=== PATIENT | female | born 1955 | race Hispanic/Latino ===

== ENCOUNTER 2019-04-02 15:59 | Observation (INO) | payer SELFPAY ==
[2019-04-02 16:26] LABS: Absolute Lymphocytes (CBC) 2.7 K/uL (0.7-4.9); Basophils % 0.5 % (0-1.3); Hematocrit 34.1 % (36.0-45.0); Lymphocytes % 23.9 % (15.3-44.8); MPV 8.5 fL (7.6-11.3); RBC Red Blood Cell Count 4.08 M/uL (3.86-4.86)
[2019-04-02 16:44] LABS: ALT/SGPT 18 U/L (12-78); AST/SGOT 19 U/L (15-37); Albumin 3.8 g/dL (3.4-5.0); Alkaline Phosphatase 84 U/L (45-117); BUN Blood Urea Nitrogen 38 mg/dL (7-18); Bicarbonate 31 mmol/L (21-32); Bilirubin Direct 0.1 mg/dL (0-0.2); Bilirubin Total 0.4 mg/dL (0.2-1.0); Glucose Level 370 mg/dL (74-106); Magnesium 1.8 mg/dL (1.8-2.4); NT PRO-BNP 218 pg/mL (<125); Potassium 3.5 mmol/L (3.5-5.1); Protein, Total 7.6 g/dL (6.4-8.2); Sodium Level 135 mmol/L (136-145); Troponin (Emerg Dept Use Only) < 0.02 ng/mL (0.0-0.045)
[2019-04-02 16:47] LABS: Protime INR 1.04
--- NOTE | 2019-04-02 17:26 | RAD REPORT ---
EXAM DESCRIPTION: Jenny Single View04/02/2019 4:31 pm CLINICAL HISTORY: syncope COMPARISON: 2012 FINDINGS: The lungs appear clear of acute infiltrate. The heart is normal size IMPRESSION: No acute abnormalities displayed
--- NOTE | 2019-04-02 17:48 | RAD REPORT ---
EXAM DESCRIPTION: USCarotid Artery Qamajrzsm43/9/2019 5:17 pm CLINICAL HISTORY: Syncope COMPARISON: 2012 FINDINGS: The velocity of the right internal carotid artery equals 70 cm/sec. The right ICA/CCA rati o .7. Tortuous common carotid arteries. The velocity of the left internal carotid artery equals 110 cm/sec. The left ICA/CCA ratio 1.2 Mild plaque is present within the carotid arteries. The vertebral arteries demonstrate antegrade flow IMPRESSION: Mild plaque within the carotid arteries without evidence of a hemodynamically significan t stenosis NASCET criteria used. Mild 0-49% stenosis Moderate 50-69% stenosis Severe 70-99% stenosis
--- NOTE | 2019-04-02 18:25 | EKG ---
Test Date: 2019-04-02 Test Time: 16:25:36 Firer Low Pressure: HUNG MEASUREMENT RESULTS: Intervals: Rate: 76 MT: 144 QRSD: 76 QT: 406 QTc: 456 Rochelle: P: 37 MT: 144 QRS: 18 T: -5 INTERPRETIVE STATEMENTS: Normal sinus rhythm Nonspecific T wave abnormality Abnormal ECG Compared to ECG 12/01/2012 14:28:35 T-wave abnormality now present Left ventricular hypertrophy no longer present Electronically Signed On 04-02-19 18:24:12 CDT by Humberto Clark
--- NOTE | 2019-04-02 18:40 | RAD REPORT ---
EXAM DESCRIPTION: CT - Head C Spine Mpr Wo Con - 04/02/2019 6:22 pm CLINICAL HISTORY: syncope.Head and neck injury status post fall. Head and neck pain COMPARISON: None. TECHNIQUE: Computed axial tomography of the head and cervical spine was obtained. Sagittal and coronal reconstruction was performed. All CT scans are performed using dose optimization technique as appropriate and may include automated exposure control or mA/KV adjustment according to patient size. FINDINGS: Low-density within the right frontal lobe has the appearance of an old infarction. Mild lo w-density within periventricular white matter likely ischemic changes secondary to small vessel disea se An intracranial bleed is not seen. The ventricles are normal in caliber. An extra-axial fluid collect ion is not noted.Fluid within the visualized sinuses and mastoids is not seen A cervical fracture is not visualized. No dislocation is noted. IMPRESSION: No acute intracranial abnormality is seen. A cervical fracture is not visualized. If the patient continues to have symptoms to suggest intracra nial /spinal cord pathology then MRI would be recommended
[2019-04-02] MEDS ORDERED: ACETAMINOPHEN 500 MG TAB PO PRN (19:16)
[2019-04-02] MEDS ORDERED: ONDANSETRON 4 MG/2 ML VIAL IV PRN (19:16)
[2019-04-02] MEDS ORDERED: MORPHINE 2 MG/ML SYR IV PRN (19:16)
--- NOTE | 2019-04-02 19:46 | ER ---
Nurse's Notes [facility] Name: Jihan Armenta Age: 63 yrs Sex: Female : 1955 Arrival Date: 04/02/2019 Time: 16:02 Bed 20 Private MD: Diagnosis: Syncope and collapse;Fluid overload Presentation: 04/02 16:05 Presenting complaint: Patient states: She was at [employer] eating lunch and she stood up aj1 to change the TV channel and had a syncopal episode. Patient reports that this is her second syncopal episode this week. Denies chest pain, shortness of breath. Patient reports that she has been feeling fine, then she suddenly feels light headed and passes out. Transition of care: patient was not received from another setting of care. Onset of symptoms was April 02, 2019. 16:05 Risk Assessment: Do you want to hurt yourself or someone else? Patient reports no aj1 desire to harm self or others. Initial Sepsis Screen: Does the patient meet any 2 criteria? No. Patient's initial sepsis screen is negative. Does the patient have a suspected source of infection? No. Patient's initial sepsis screen is negative. Care prior to arrival: None. 16:05 Acuity: ELDA 3 aj1 16:22 Method Of Arrival: EMS: [facility] aj1 Triage Assessment: 16:25 General: Appears in no apparent distress. comfortable, Behavior is calm, cooperative, aj1 appropriate for age. Pain: Denies pain. Neuro: Level of Consciousness is awake, alert, obeys commands, Reports a syncopal episode. Historical: - Allergies: 16:25 No Known Allergies; aj1 - Home Meds: 16:25 Metformin Oral [Active]; novolin [Active]; 2 unknown HTN medications [Active]; aj1 - PMHx: 16:25 Hypertension; Diabetes - NIDDM; neuropathy; CVA; aj1 - PSHx: 16:25 Hysterectomy; Tonsillectomy; fatty tumor removed from under right arm; aj1 - Immunization history:: Flu vaccine is not up to date. - Social history:: Smoking status: Patient/guardian denies using tobacco. - Ebola Screening: : Patient denies travel to an Ebola-affected area in the 21 days before illness onset. Screenin:28 Abuse screen: Denies threats or abuse. Denies injuries from another. Nutritional aj1 screening: No deficits noted. Tuberculosis screening: No symptoms or risk factors identified. 20:37 Fall Risk Fall in past 12 months (25 points). Assessment: 16:28 General: Appears in no apparent distress. comfortable, Behavior is calm, cooperative, aj1 appropriate for age. Pain: Denies pain. Neuro: Level of Consciousness is awake, alert, obeys commands, Oriented to person, place, time, situation, Moves all extremities. Full function Speech is normal, Facial symmetry appears normal, Reports a syncopal episode. Cardiovascular: Denies chest pain, palpitations, shortness of breath, Heart tones S1 S2 present Patient's skin is warm and dry. Rhythm is sinus rhythm. Respiratory: Airway is patent Respiratory effort is even, unlabored, Respiratory pattern is regular, symmetrical, Breath sounds are clear bilaterally. Denies shortness of breath. GI: No signs and/or symptoms were reported involving the gastrointestinal system. : No signs and/or symptoms were reported regarding the genitourinary system. EENT: No signs and/or symptoms were reported regarding the EENT system. Derm: No signs and/or symptoms reported regarding the dermatologic system. Skin is pale. Musculoskeletal: No signs and/or symptoms reported regarding the musculoskeletal system. Circulation, motion, and sensation intact. 17:38 Reassessment: Patient appears in no apparent distress at this time. No changes from aj1 previously documented assessment. Patient and/or family updated on plan of care and expected duration. Pain level reassessed. Patient is alert, oriented x 3, equal unlabored respirations, skin warm/dry/pink. 18:10 Reassessment: Patient transported to [place] via wheelchair. aj1 19:30 Reassessment: Patient appears in no apparent distress at this time. No changes from previously documented assessment. Patient and/or family updated on plan of care and expected duration. Pain level reassessed. Patient is alert, oriented x 3, equal unlabored respirations, skin warm/dry/pink. Patient denies pain at this time. 20:29 Reassessment: Patient appears in no apparent distress at this time. No changes from previously documented assessment. Patient and/or family updated on plan of care and expected duration. Pain level reassessed. Patient is alert, oriented x 3, equal unlabored respirations, skin warm/dry/pink. Explained Admission Orders Patient denies pain at this time. Vital Signs: 16:25 BP 149 / 60; Pulse 79; Resp 15; Pulse Ox 95% on R/A; Weight 113.4 kg (R); Height 5 ft. aj1 2 in. (157.48 cm) (R); Pain 0/10; 17:38 BP 137 / 48; Pulse 85; Resp 18; Pulse Ox 96% ; aj1 18:45 BP 128 / 49; Pulse 79; Resp 21; Pulse Ox 95% on R/A; aj1 19:30 BP 135 / 91; Pulse 77; Resp 15; Pulse Ox 93% on R/A; wh 20:36 BP 101 / 63; Pulse 79; Resp 18; Pulse Ox 100% on R/A; wh 16:25 Body Mass Index 45.73 (113.40 kg, 157.48 cm) aj1 ED Course: 16:02 Patient arrived in ED. 16:04 Asuncion Wagner, RN is Primary Nurse. aj1 16:11 [facility]C [facility] snw 16:11 Earnest Stone MD is Attending Physician. snw 16:24 Triage completed. aj1 16:25 Arm band placed on. aj1 16:28 Patient has correct armband on for positive identification. Bed in low position. Call aj1 light in reach. Side rails up X 1. monitor technician on. Pulse ox on. NIBP on. 16:28 No provider procedures requiring assistance completed. Inserted saline lock: 20 gauge aj1 in right antecubital area, using aseptic technique. Blood collected. 16:31 XRAY Chest (1 view) In Process Unspecified. EDMS 17:05 EKG done, by psych tech. reviewed by Ira TRAN. sm3 17:18 Carotid Artery Bilateral US In Process Unspecified. EDMS 18:23 CT Head C Spine In Process Unspecified. EDMS 19:44 Sun Lebron MD is Hospitalizing Provider. snw 21:20 Patient admitted, IV remains in place. Administered Medications: No medications were administered Point of Care Testing: Blood Glucose: 20:36 Blood Glucose: 324 mg/dL; Ranges: Outcome: 19:45 Decision to Hospitalize by Provider. snw 21:19 Admitted to Med/surg accompanied by nurse, family with patient, via wheelchair, room wh 231, with chart, Report called to Dipika MATA 21:19 Condition: good 21:19 Instructed on the need for admit. 21:20 Patient left the ED. Signatures: Dispatcher [employer] EDKarena Bui, RN RN Asuncion Lo RN RN aj1 Ira Arrington, RECREATIONAL THERAPY TECHNICIAN-C RECREATIONAL THERAPY TECHNICIAN-Csnw Carolyn White Shakira 3 Corrections: (The following items were deleted from the chart) 17:05 17:05 EKG done, sm3 sm3
--- NOTE | 2019-04-02 19:46 | EDPHYS ---
Physician Documentation [facility] Name: Jihan Armenta Age: 63 yrs Sex: Female : 1955 Arrival Date: 04/02/2019 Time: 16:02 Bed 20 Private MD: OJSLYN Physician Earnest Stone HPI: 04/02 18:58 This 63 yrs old Female presents to ER via EMS with complaints of Syncope. snw 18:58 The patient has experienced syncope, collapsed. Onset: The symptoms/episode snw began/occurred suddenly, today. Duration: The patient has had multiple episodes, that last 1 minute(s). Context: the episode(s) was witnessed, by family, occurred at home, occurred while the patient was standing, Just prior to the episode the patient experienced no apparent symptoms. Associated signs and symptoms: Pertinent positives: "lightheadedness" not dizziness. Current symptoms: Currently, the patient is not experiencing any symptoms. The patient has experienced a previous episode, last week. The patient has not recently seen a physician, the patient's primary care provider is Dr. Dr. Krishnamurthy. Historical: - Allergies: 16:25 No Known Allergies; aj1 - Home Meds: 16:25 Metformin Oral [Active]; novolin [Active]; 2 unknown HTN medications [Active]; aj1 - PMHx: 16:25 Hypertension; Diabetes - NIDDM; neuropathy; CVA; aj1 - PSHx: 16:25 Hysterectomy; Tonsillectomy; fatty tumor removed from under right arm; aj1 - Immunization history:: Flu vaccine is not up to date. - Social history:: Smoking status: Patient/guardian denies using tobacco. - Ebola Screening: : Patient denies travel to an Ebola-affected area in the 21 days before illness onset. ROS: 18:58 Constitutional: Negative for fever, chills, and weight loss, Eyes: Negative for injury, snw pain, redness, and discharge, ENT: Negative for injury, pain, and discharge, Neck: Negative for injury, pain, and swelling, Cardiovascular: Negative for chest pain, palpitations, and edema, Respiratory: Negative for shortness of breath, cough, wheezing, and pleuritic chest pain, Abdomen/GI: Negative for abdominal pain, nausea, vomiting, diarrhea, and constipation, Back: Negative for injury and pain, : Negative for injury, bleeding, discharge, and swelling, MS/Extremity: Negative for injury and deformity, Skin: Negative for injury, rash, and discoloration, Psych: Negative for depression, anxiety, suicide ideation, homicidal ideation, and hallucinations. 18:58 Neuro: Positive for syncope, x 2 episodes in past week. Exam: 17:15 Constitutional: This is a well developed, well nourished patient who is awake, alert, snw and in no acute distress. Head/Face: Normocephalic, atraumatic. Eyes: Pupils equal round and reactive to light, extra-ocular motions intact. Lids and lashes normal. Conjunctiva and sclera are non-icteric and not injected. Cornea within normal limits. Periorbital areas with no swelling, redness, or edema. ENT: Nares patent. No nasal discharge, no septal abnormalities noted. Tympanic membranes are normal and external auditory canals are clear. Oropharynx with no redness, swelling, or masses, exudates, or evidence of obstruction, uvula midline. Mucous membranes moist. Neck: Trachea midline, no thyromegaly or masses palpated, and no cervical lymphadenopathy. Supple, full range of motion without nuchal rigidity, or vertebral point tenderness. No Meningismus. Chest/axilla: Normal chest wall appearance and motion. Nontender with no deformity. No lesions are appreciated. 17:15 Respiratory: Lungs have equal breath sounds bilaterally, clear to auscultation and percussion. No rales, rhonchi or wheezes noted. No increased work of breathing, no retractions or nasal flaring. Abdomen/GI: Soft, non-tender, with normal bowel sounds. No distension or tympany. No guarding or rebound. No evidence of tenderness throughout. Back: No spinal tenderness. No costovertebral tenderness. Full range of motion. Skin: Warm, dry with normal turgor. Normal color with no rashes, no lesions, and no evidence of cellulitis. MS/ Extremity: Pulses equal, no cyanosis. Neurovascular intact. Full, normal range of motion. Neuro: Awake and alert, GCS 15, oriented to person, place, time, and situation. Cranial nerves II-XII grossly intact. Motor strength 5/5 in all extremities. Sensory grossly intact. Cerebellar exam normal. Normal gait. Psych: Awake, alert, with orientation to person, place and time. Behavior, mood, and affect are within normal limits. 17:15 Cardiovascular: Rate: normal, Rhythm: regular, Edema: 2+ edema to level of left ankle and right ankle. Vital Signs: 16:25 BP 149 / 60; Pulse 79; Resp 15; Pulse Ox 95% on R/A; Weight 113.4 kg (R); Height 5 ft. aj1 2 in. (157.48 cm) (R); Pain 0/10; 17:38 BP 137 / 48; Pulse 85; Resp 18; Pulse Ox 96% ; aj1 18:45 BP 128 / 49; Pulse 79; Resp 21; Pulse Ox 95% on R/A; aj1 19:30 BP 135 / 91; Pulse 77; Resp 15; Pulse Ox 93% on R/A; wh 20:36 BP 101 / 63; Pulse 79; Resp 18; Pulse Ox 100% on R/A; wh 16:25 Body Mass Index 45.73 (113.40 kg, 157.48 cm) aj1 MDM: 16:14 Patient medically screened. snw 19:45 Data reviewed: vital signs, nurses notes. Data interpreted: Pulse oximetry: on room air snw is 95 %. Interpretation: acceptable. Counseling: I had a detailed discussion with the patient and/or guardian regarding: the historical points, exam findings, and any diagnostic results supporting the discharge/admit diagnosis, lab results, radiology results, the need for further work-up and treatment in the hospital. 04/02 16:12 Order name: Basic Metabolic Panel; Complete Time: 16:44 snw 04/02 16:12 Order name: CBC with Diff; Complete Time: 16:43 snw 04/02 16:12 Order name: LFT's; Complete Time: 16:44 snw 04/02 16:12 Order name: Magnesium; Complete Time: 16:44 snw 04/02 16:12 Order name: NT PRO-BNP; Complete Time: 16:44 snw 04/02 16:12 Order name: PT-INR; Complete Time: 16:55 snw 04/02 16:12 Order name: Troponin (emerg Dept Use Only); Complete Time: 16:44 snw 04/02 16:12 Order name: XRAY Chest (1 view); Complete Time: 17:32 snw 04/02 16:12 Order name: EKG; Complete Time: 16:13 snw 04/02 16:29 Order name: Carotid Artery Bilateral US; Complete Time: 17:52 snw 04/02 18:06 Order name: CT Head C Spine; Complete Time: 18:50 snw 04/02 19:21 Order name: Echo with Doppler EDMS 04/02 19:21 Order name: Troponin I EDMS 04/02 19:21 Order name: Urinalysis W/Microscopic EDMS 04/02 16:12 Order name: Cardiac monitoring; Complete Time: 16:31 snw 04/02 16:12 Order name: EKG - Nurse/Tech; Complete Time: 16:32 snw 04/02 16:12 Order name: IV Saline Lock; Complete Time: 16:32 snw 04/02 16:12 Order name: Labs collected and sent; Complete Time: 16:32 snw 04/02 16:12 Order name: O2 Per Protocol; Complete Time: 16:32 snw 04/02 16:12 Order name: O2 Sat Monitoring; Complete Time: 16:32 snw 04/02 16:29 Order name: Misc. Order: med list from ; Complete Time: 17:44 snw 04/02 19:21 Order name: CONS Pharmacy Consult EDMS 04/02 19:21 Order name: Heart Healthy EDMS EC:15 Rate is 76 beats/min. Rhythm is regular. QRS [place] is Normal. [place] interval is normal. QRS snw interval is normal. QT interval is normal. No Q waves. T waves are Flattened. Clinical impression: NSR w/ Non-specific ST/T Changes. Administered Medications: No medications were administered Point of Care Testing: Blood Glucose: 20:36 Blood Glucose: 324 mg/dL; Ranges: Critical Glucose Levels:Adult <50 mg/dl or >400 mg/dl <40 mg/dl or >180 mg/dl Disposition: 04/03 07:52 Co-signature as Attending Physician, Earnest Stone MD I agree with the assessment and jan plan of care. Disposition: 04/02/19 19:45 Hospitalization ordered by Sun Lebron for Observation. Preliminary diagnosis are Syncope and collapse, Fluid overload. - Bed requested for Telemetry/MedSurg (observation). - Status is Observation. wh - Condition is Stable. - Problem is new. - Symptoms are unchanged. UTI on Admission? No Signatures: Dispatcher [employer] Asuncion Solitario RN RN aj1 Maryble Medina, RN Earnest Guzmán MD MD cha Therrien, Shelly, MAIL SORTING SUPERVISOR-C MAIL SORTING SUPERVISOR-[place] Carolyn White Corrections: (The following items were deleted from the chart) 04/02 19:51 19:45 Hospitalization Ordered by Sun Lebron MD for Observation. Preliminary diagnosis is Syncope and collapse; Fluid overload. Bed requested for Telemetry/MedSurg (observation). Status is Observation. Condition is Stable. Problem is new. Symptoms are unchanged. UTI on Admission? No. snw 21:20 19:51 04/02/2019 19:45 Hospitalization Ordered by Sun Lebron MD for Observation. Preliminary diagnosis is Syncope and collapse; Fluid overload. Bed requested for Telemetry/MedSurg (observation). Status is Observation. Condition is Stable. Problem is new. Symptoms are unchanged. UTI on Admission? No.
[2019-04-02 21:37] VITALS: O2SAT 100
[2019-04-02] MEDS: NA CHLORIDE 0.9% 1,000 ML IV SCH (22:28)
[2019-04-02 23:21] VITALS: BMI 44.1
[2019-04-02 23:37] LABS: Urine Appearance CLOUDY; Urine Bilirubin NEGATIVE (NEG); Urine Blood NEGATIVE (NEG); Urine Color YELLOW; Urine Glucose 3+ (NEG); Urine Protein NEGATIVE (NEG); Urine Specific Gravity 1.015 (1.005-1.030); Urine Urobilinogen 0.2 mg/dL (0.2-1.0)
[2019-04-03 00:41] LABS: Urine Bacteria LOADED /HPF (<20); Urine Culture Reflex Order REFLEXED; Urine RBC NONE SEEN /HPF (NONE SEEN)
[2019-04-03 05:48] LABS: Absolute Lymphocytes (CBC) 3.7 K/uL (0.7-4.9); Basophils % 0.5 % (0-1.3); Hematocrit 29.6 % (36.0-45.0); Lymphocytes % 32.6 % (15.3-44.8); MPV 8.4 fL (7.6-11.3); RBC Red Blood Cell Count 3.56 M/uL (3.86-4.86)
[2019-04-03] MEDS: NA CHLORIDE 0.9% 1,000 ML IV SCH ×2 (06:02→16:47)
[2019-04-03 06:17] LABS: Bilirubin Total 0.3 mg/dL (0.2-1.0); Potassium 3.2 mmol/L (3.5-5.1); Protein, Total 6.4 g/dL (6.4-8.2)
[2019-04-03] MEDS ORDERED: POTASSIUM CL SA 10 MEQ TAB PO ONE (07:20)
[2019-04-03] MEDS ORDERED: GLUCAGON 1 MG/VIAL IM PRN (08:59)
[2019-04-03] MEDS ORDERED: D50W 25 GM/50 ML SYRINGE IV PRN (08:59)
[2019-04-03] MEDS: INSULIN -REGULAR HUMAN 50 UNIT/0.5 ML ML SQ SCH ×3 (09:09→16:47)
--- NOTE | 2019-04-03 09:19 | P.HP ---
Certification for Inpatient Patient admitted to: Observation With expected LOS: <2 Midnights Patient will require the following post-hospital care: None Practitioner: I am a practitioner with admitting privileges, knowledge of patient current condition, hospital course, and medical plan of care. Services: Services provided to patient in accordance with Admission requirements found in Title 42 Section 412.3 of the Code of Federal Regulations Patient History Date of Service: 04/02/19 Reason for admission: SYNCOPE History of Present Illness: Patient is a 63-year-old female who I have taken care of in the past for neurologic issues. She has a history of CVA, and she presents to the emergency room after having a syncopal episode. According to her she has been feeling faint since Sunday. She had a near syncopal episode at congregation, and then she had another 1 Sunday morning when they were helping deliver some things to another charge. Then they were praying on their knees Sunday afternoon and Ms. Armenta suddenly became unresponsive. She hit her head on a toy as she was falling. She started waking up right away. She had no incontinence or did not bite her tongue. In the emergency room she was found to have acute renal insufficiency. I did notice she is on hydrochlorothiazide and Lasix together. I am not really sure about the rationale for this, but this may be because she becomes edematous. Will check an echocardiogram and a UA for protein. Also check her liver function and albumin level. She will be admitted for observation. Will get a carotid Doppler as well as an MRI- stroke protocol. She has had a stroke in the past and we will make sure that she is not having a stroke or TIAs. Allergies No Known Allergies Allergy (Verified 04/02/19 22:08) Home Medications: Atorvastatin Calcium [Lipitor*] 10 mg PO DAILY 04/02/19 Furosemide [Lasix] 40 mg PO DAILY 04/02/19 Insulin NPH Human Isophane [Novolin N] 20 units SQ BID 04/02/19 Losartan Potassium 50 mg PO DAILY 04/02/19 Metformin ER [Glucophage ER*] 500 mg PO BID 04/02/19 Metoprolol Tartrate [Lopressor*] 25 mg PO DAILY 04/02/19 hydroCHLOROthiazide [Hydrochlorothiazide*] 12.5 mg PO DAILY 04/02/19 - Past Medical/Surgical History Has patient received pneumonia vaccine in the past: Yes Diabetic: Yes -: DM -: Asthma -: Htn -: Hyperlipidemia -: CHF -: Hysterectomy -: Fat from under right arm - Family History Mother Medical History: Heart disease - Social History Smoking Status: Never smoker Alcohol use: No CD- Drugs: No Caffeine use: Yes Place of Residence: Home Review of Systems 10-point ROS is otherwise unremarkable Physical Examination - Vital Signs Temperature: 97.1 F Blood Pressure: 144/63 Pulse: 63 Respirations: 17 Pulse Ox (%): 96 - Physical Exam General: Alert, In no apparent distress, Oriented x3 HEENT: Atraumatic, PERRLA, Mucous membr. moist/pink, EOMI, Sclerae nonicteric Neck: Supple, 2+ carotid pulse no bruit, No LAD, Without JVD or thyroid abnormality Respiratory: Clear to auscultation bilaterally, Normal air movement Cardiovascular: Regular rate/rhythm, Normal S1 S2, No murmurs Gastrointestinal: Normal bowel sounds, Soft and benign, Non-distended, No tenderness Musculoskeletal: No swelling, No tenderness Integumentary: No rashes Neurological: Normal gait, Normal speech, Normal strength at 5/5 x4 extr, Normal tone, Sensation intact, Cranial nerves 3-12 intact, Normal affect Lymphatics: No axilla or inguinal lymphadenopathy - Studies Laboratory Data (last 24 hrs) 04/02/19 16:16: PT 12.3, INR 1.04 04/02/19 16:16: WBC 11.1 H, Hgb 11.9 L, Hct 34.1 L, Plt Count 388 04/02/19 16:16: Sodium 135 L, Potassium 3.5, BUN 38 H, Creatinine 1.87 H, Glucose 370 H, Magnesium 1.8, Total Bilirubin 0.4, AST 19, ALT 18, Alkaline Phosphatase 84 Assessment & Plan - Problems (Diagnosis) (1) Syncope and collapse Current Visit: Yes Status: Acute (2) History of stroke Current Visit: Yes Status: Acute (3) Acute kidney injury Current Visit: Yes Status: Acute (4) Dehydration Current Visit: Yes Status: Acute (5) Diuretics causing adverse effect in therapeutic use Current Visit: Yes Status: Acute - Plan 1. MRI of the brain 2. Echocardiogram and carotid Doppler 3. Anti-platelet therapy and statin therapy 4. Neurology consultation-this can be done as an outpatient 5. Monitor renal function very closely; gentle hydration; will discontinue 1 of the diuretics at the time of discharge. 6. DVT prophylaxis Discharge Plan: Home Plan to discharge in: 24 Hours - Advance Directives Does patient have a Living Will: No Does patient have a Durable POA for Healthcare: No - Code Status/Comfort Care Code Status Assessed: Yes Code Status: Full Code Critical Care: No Time Spent Managing PTS Care (In Minutes): 45
--- NOTE | 2019-04-03 10:52 | ECHO ---
HEIGHT: 5 ft 2 in WEIGHT: 241 lb 8 oz DATE OF STUDY: 04/03/[address]: Sun Lebron MD 2-DIMENSIONAL: YES M.MODE: YES DOPPLER: YES COLOR FLOW: YES TDS: NO PORTABLE: NO DEFINITY: NO BUBBLE STUDY: NO DIAGNOSIS: SYNCOPE CARDIAC HISTORY: CATHERIZATION: NO SURGERY: NO PROSTHETIC VALVE: NO PACEMAKER: NO MEASUREMENTS (cm) DIASTOLIC (NORMALS) SYSTOLIC (NORMALS) IVSd 1.2 (0.6-1.2) LA Diam 4.0 (1.9-4.0) LVEF 78% LVIDd 4.2 (3.5-5.7) LVIDs 2.3 (2.0-3.5) %FS 46% LVPWd 1.1 (0.6-1.2) Ao Diam 2.6 (2.0-3.7) 2 DIMENSIONAL ASSESSMENT: RIGHT ATRIUM: NORMAL LEFT ATRIUM: NORMAL RIGHT VENTRICLE: NORMAL LEFT VENTRICLE: NORMAL TRICUSPID VALVE: NORMAL MITRAL VALVE: NORMAL PULMONIC VALVE: NORMAL AORTIC VALVE: NORMAL PERICARDIAL EFFUSION: NONE AORTIC ROOT: NORMAL LEFT VENTRICULAR WALL MOTION: NORMAL DOPPLER/COLOR FLOW: NORMAL COMMENTS: NORMAL 2D ECHOCARDIOGRAM WITH DOPPLER. TECHNOLOGIST: Bharat GUADARRAMA
--- NOTE | 2019-04-03 12:57 | RAD REPORT ---
EXAM DESCRIPTION: MRI - Brain W/Wo Cont - 04/03/2019 12:44 pm CLINICAL HISTORY: syncope; hx of cva Headache, drowsiness, CVA symptomology. COMPARISON: MRA Head Wo Cont dated 04/03/2019; MRA Neck W/Wo Cont dated 04/03/2019 TECHNIQUE: Multi-sequence, multiplanar MR imaging of the brain was performed with contrast. FINDINGS: No intracranial hemorrhage, hydrocephalus, or extra-axial fluid collection. T2 and FLAIR h yperintensity in the periventricular region extending into the right medial frontal lobe is likely re lated to chronic ischemia.. No midline shift.No intracranial mass. DWI is negative for acute CVA. The midline structures are normally formed. Mastoid air cells and paranasal sinuses are clear. Post-contrast images show no abnormal enhancement to suggest tumor or infection. IMPRESSION: Negative for acute CVA or other acute intracranial process.
--- NOTE | 2019-04-03 12:58 | RAD REPORT ---
EXAM DESCRIPTION: MRI - MRA Head Wo Cont - 04/03/2019 12:44 pm CLINICAL HISTORY: Syncope; h/o of CVA CVA COMPARISON: Brain W/Wo Cont dated 04/03/2019 FINDINGS: 3D noncontrast [id number] MR angiography of the [place] was performed. No aneurysm, flow-limiting stenosis or vascular malformation is seen. Forward flow seen in codominant vertebral arteries. The visualized dural venous sinuses appear patent. IMPRESSION: No significant flow abnormality of the [place] is identified.
--- NOTE | 2019-04-03 12:59 | RAD REPORT ---
EXAM DESCRIPTION: MRI - MRA Neck W/Wo Cont - 04/03/2019 12:44 pm CLINICAL HISTORY: Syncope, CVA history COMPARISON: CT cervical spine April 02 TECHNIQUE: MR angiography of the cervical vasculature performed. Coronal imaging plane acquisition u tilized. A 20 milliliter MultiHance contrast volume was utilized. Coronal reformatted images were gen erated and reviewed. Vertical axis 3D rotational projections obtained using maximum intensity project ion protocol. FINDINGS: The aortic arch is bovine configuration. Both subclavian arteries are well visualized and show no suspicious findings. Bilateral vertebral artery origins unremarkable as well. Vertebral arteries are codominant. There is tortuosity in the proximal aspect of each vertebral arter y. No dissection or stenosis. Basilar artery is unremarkable. Bilateral common carotid arteries are tortuous but also without dissection, stenosis or focal abnorma lity. Carotid bulbs are normal. Mild tortuosity of each internal carotid artery present with no disse ction, stenosis or suspicious finding. No vascular malformation. IMPRESSION: No dissection, stenosis or significant vascular finding noted on MRA neck imaging.
[2019-04-03 15:33] LABS: Potassium 3.6 mmol/L (3.5-5.1); Thyroid Stimulating Hormone 0.911 uIU/mL (0.360-3.740)
[2019-04-03 16:54] VITALS: BP 169/69; TEMP 97.4
[2019-04-03] MEDS ORDERED: NPH (HUMAN) 100 UNITS/ML INSULIN SQ SCH (21:00)
[2019-04-03] MEDS ORDERED: ATORVASTATIN 10 MG TAB PO SCH (21:00)
[2019-04-03] MEDS ORDERED: METFORMIN ER 500 MG TAB PO SCH (21:00)
[2019-04-04] MEDS ORDERED: METOPROLOL TAR 25 MG TAB PO SCH (09:00)
[2019-04-04] MEDS ORDERED: LOSARTAN POTASSIUM 50 MG TABLET PO SCH (09:00)
--- NOTE | 2019-04-05 02:32 | P.DS ---
Discharge Date: 04/03/19 Disposition: ROUTINE DISCHARGE Discharge Condition: GOOD Reason for Admission: SYNCOPE - Problems (1) Syncope and collapse Status: Acute (2) History of stroke Status: Acute (3) Acute kidney injury Status: Acute (4) Dehydration Status: Acute (5) Diuretics causing adverse effect in therapeutic use Status: Acute Brief History of Present Illness: Patient is a 63-year-old female who I have taken care of in the past for neurologic issues. She has a history of CVA, and she presents to the emergency room after having a syncopal episode. According to her she has been feeling faint since Sunday. She had a near syncopal episode at [facility], and then she had another 1 Sunday morning when they were helping deliver some things to another charge. Then they were praying on their knees Sunday and Ms. Armenta suddenly became unresponsive. She hit her head on a toy as she was falling. She started waking up right away. She had no incontinence or did not bite her tongue. In the emergency room she was found to have acute renal insufficiency. I did notice she is on hydrochlorothiazide and Lasix together. I am not really sure about the rationale for this, but this may be because she becomes edematous. Will check an echocardiogram and a UA for protein. Also check her liver function and albumin level. She will be admitted for observation. Will get a carotid Doppler as well as an MRI- stroke protocol. She has had a stroke in the past and we will make sure that she is not having a stroke or TIAs. Hospital Course: Patient's workup was completely unremarkable. Patient was dehydrated and after hydration his renal function has improved. At this time patient is stable for discharge with outpatient follow with his PCP and Neurology. Return to the ER if his symptoms worsen. Vital Signs/Physical Exam: Temp Pulse Resp BP Pulse Ox 97.4 F 65 17 169/69 H 96 04/03/19 16:00 04/03/19 16:00 04/03/19 16:00 04/03/19 16:00 04/03/19 16:00 General: Alert, In no apparent distress, Oriented x3 Laboratory Data at Discharge: WBC 11.4 K/uL (4.3-10.9) H 04/03/19 05:22 Hgb 10.4 g/dL (12.0-15.0) L 04/03/19 05:22 Hct 29.6 % (36.0-45.0) L 04/03/19 05:22 Plt Count 307 K/uL (152-406) D 04/03/19 05:22 PT 12.3 SECONDS (9.5-12.5) 04/02/19 16:16 INR 1.04 04/02/19 16:16 Sodium 140 mmol/L (136-145) 04/03/19 05:22 Potassium 3.6 mmol/L (3.5-5.1) 04/03/19 14:54 BUN 34 mg/dL (7-18) H 04/03/19 05:22 Creatinine 1.42 mg/dL (0.55-1.3) H 04/03/19 05:22 Glucose 238 mg/dL (74-106) H 04/03/19 05:22 Magnesium 1.8 mg/dL (1.8-2.4) 04/02/19 16:16 Total Bilirubin 0.3 mg/dL (0.2-1.0) 04/03/19 05:22 AST 10 U/L (15-37) L 04/03/19 05:22 ALT 15 U/L (12-78) 04/03/19 05:22 Alkaline Phosphatase 76 U/L (45-117) 04/03/19 05:22 Troponin I < 0.02 ng/mL (0.0-0.045) 04/03/19 08:02 Home Medications: Atorvastatin Calcium [Lipitor*] 10 mg PO DAILY 04/02/19 Furosemide [Lasix] 40 mg PO DAILY 04/02/19 Insulin NPH Human Isophane [Novolin N] 20 units SQ BID 04/02/19 Losartan Potassium 50 mg PO DAILY 04/02/19 Metformin ER [Glucophage ER*] 500 mg PO BID 04/02/19 Metoprolol Tartrate [Lopressor*] 25 mg PO DAILY 04/02/19 Potassium Chloride [K-Dur] 10 meq PO DAILY #30 tab.er.prt 04/03/19 New Medications: Potassium Chloride [K-Dur] 10 meq PO DAILY #30 tab.er.prt Patient Discharge Instructions: OK TO DC IV AND DC HOME if patient is not orthostatic and if MRI and echocardiogram are normal. Please ambulate the patient prior to discharge to make sure she is not at a high fall risk any more. FOLLOW-UP WITH PRIMARY CARE PROVIDER IN 1-2 WEEKS. FOLLOW-UP WITH NEUROLOGY IN 1-2 WEEKS. RETURN TO THE ER IF symptoms worsen. CALL DR. LLAMAS AT [phone] IF ANY QUESTIONS REGARDING HOSPITAL STAY. PLEASE CALL THE FLOOR AT [phone] IF ANY MEDICATION OR NURSING QUESTIONS. PATIENT IS ON 2 DIURETICS AND WE WILL DISCONTINUE THE HYDROCHLOROTHIAZIDE- RESUME THE LASIX ON SUNDAY Diet: AHA Activity: Fall precautions Time spent managing pt's care (in minutes): 20
== END 2019-04-03 18:33 | disposition home or self-care (01) ==
LOC: ER 15:59 → ERHOLD 19:49 → 2ND 21:01
PROVIDERS: ADMIT Hospitalist; ATTEND Hospitalist
DX: R55 Syncope and collapse (principal); Z86.73 Personal history of transient ischemic attack (TIA), and cerebral infarction without residual deficits; N17.9 Acute kidney failure, unspecified; E86.0 Dehydration
CPT/HCPCS: 36415; 70450; 70544; 70549; 70553; 71045; 72125; 80048; 80053; 80076; 81001; 82533; 82962; 83735; 83880; 84132; 84439; 84443; 84484; 85025; 85610; 87077; 87086; 87088; 87186; 93005; 93306; 93880; 99285; A9577; G0378; J1815; J7030